=== PATIENT | male | born 2000 | race Caucasian/White ===

== ENCOUNTER 2021-07-28 05:15 | Emergency (ER) | payer BC ==
[~2021-07-28] VITALS: Ht 195.6 cm; Wt 88.5 kg
[2021-07-28 05:19] VITALS: BP 134/90
--- NOTE | 2021-07-28 05:25 | NUR ---
PT BROUGHT TO BED 9 VIA GURNEY BY EMS
--- NOTE | 2021-07-28 05:29 | NUR ---
21 YO M DAMARI FROM [facility] WITH C/O N/V/D SINCE 1830. PT STATES ALL HE ATE WAS SALMON AND FRIES, AGTER 2 HRS LATER, SYMPTOMS BEGAN. +CHILLS. AFEBRILE. DENIES TAKING MEDICATION. ABD IS FLAT. BOWEL SOUNDS HYPOACTIVE [id number]. ALL NEEDS MET AT THIS TIME. BED LOCKED IN LOWEST POSITION, SIDE RAILS X2. DENIES HX, RX AND ALLERGIES.
[2021-07-28] MEDS ORDERED: NACL 0.9% 1,000 ML IV ONE (06:10)
[2021-07-28] MEDS ORDERED: ONDANSETRON 4 MG/2 ML VIAL IVP ONE (06:10)
--- NOTE | 2021-07-28 06:12 | NUR ---
pt ambulated to with steady gait and back to bed.
[2021-07-28 06:26] LABS: BASOPHILS % (AUTO) 0.1 % (0.0-2.0); HEMATOCRIT 47.6 % (36-52); HEMOGLOBIN 16.5 g/dL (12.0-18.0); LYMPHOCYTES # (AUTO) 0.5 K/uL (2.0-11.5); MEAN CORPUSCULAR HEMOGLOBIN 30 pg (27-31); MEAN CORPUSCULAR HGB CONC 35 g/dL (33-37); MONOCYTES # (AUTO) 0.4 K/uL (0.8-1.0); MONOCYTES % (AUTO) 3.1 % (1.7-9.3); NEUTROPHILS # (AUTO) 12.4 K/uL (1.8-7.7); NEUTROPHILS % (AUTO) 92.8 % (42.2-75.2); PLATELET COUNT (AUTO) 277 K/uL (140-450); RED BLOOD CELL COUNT(AUTO) 5.47 MIL/uL (4.20-6.10); RED CELL DISTRIBUTION WIDTH 12.4 % (11.6-13.7); WHITE BLOOD COUNT (AUTO) 13.3 K/uL (4.5-11.0)
[2021-07-28] MEDS ORDERED: BISM262C53 PO (06:37)
[2021-07-28] MEDS ORDERED: ONDA-188 PO (06:37)
[2021-07-28 06:53] LABS: ALBUMIN 4.4 g/dL (3.4-5.0); ANION GAP 17.7 (8-16); CARBON DIOXIDE 26.4 mmol/L (21-32); CREATININE 1.3 mg/dL (0.6-1.3); POTASSIUM 4.1 mmol/L (3.5-5.1); TOTAL BILIRUBIN 1.6 mg/dL (0.0-1.0)
--- NOTE | 2021-07-28 07:27 | NUR ---
Pt report given to CASSY KERR. Transfer of care at this time.
[2021-07-28 07:46] VITALS: BP 120/59
--- NOTE | 2021-07-28 07:47 | NUR ---
Patient discharged with v/s stable. Written and verbal after care instructions given FOR FOOD POISONING and explained. Patient alert, oriented and verbalized understanding of instructions. Ambulatory with steady gait. All questions addressed prior to discharge. ID band removed. Patient advised to follow up with PMD. Rx of PEPTO AND ZOFRAN given. Patient educated on indication of medication including possible reaction and side effects. Opportunity to ask questions provided and answered.
== END 2021-07-28 07:47 | disposition home or self-care (01) ==
LOC: MED 05:15
DX: R11.2 Nausea with vomiting, unspecified (principal); R19.7 Diarrhea, unspecified; Z79.899 Other long term (current) drug therapy
CPT/HCPCS: 36415; 80053; 83690; 85025; 96361; 96374; 99283; J2405; J7030